=== PATIENT | female | born 1940 | race Caucasian/White ===

== ENCOUNTER 2017-04-05 10:19 | Day surgery (SDC) | payer OTHER ==
[2017-04-04 07:55] VITALS: BMI 27.8
[2017-04-05 10:51] VITALS: TEMP 97.8
[2017-04-05] MEDS ORDERED: MIDAZOLAM HCL 2 MG/2 ML SINGLE DOSE VIAL ONE (12:29)
[2017-04-05] MEDS ORDERED: PROPOFOL 20 ML ONE (12:29)
[2017-04-05] MEDS ORDERED: LIDOCAINE HCL 2% (20ML MULTI-DOSE VIAL) NR ONE (12:31)
[2017-04-05] MEDS ORDERED: ceFAZolin SODIUM 1 GM VIAL IVPB ONE (12:45)
[2017-04-05] MEDS ORDERED: LIDOCAINE HCL 2% (50ML VIAL) INF ONE (12:53)
[2017-04-05] MEDS ORDERED: IBUPROFEN 400 MG TABLET (FP) PO PRN (13:36)
[2017-04-05] MEDS ORDERED: ACETAMINOPHEN 325 MG TABLET (FP) PO PRN (13:36)
--- NOTE | 2017-04-05 18:58 | OP ---
DATE OF OPERATION: 04/05/2017 PREOPERATIVE DIAGNOSIS: Vulvar lesion. POSTOPERATIVE DIAGNOSIS: Vulvar lesion. SURGEON: Curtis Segundo MD ANESTHESIA: Fractional by Bong Rhodes MD and staff and 2% lidocaine 5 mL was injected by me. The lesion was removed and sent to Pathology, and were applied. Estimated blood loss was 5 . Patient tolerated the procedure and was sent to the recovery room in good condition. Chay [id number]
[2017-04-05 19:16] VITALS: BP 146/59; PULSE 57
--- NOTE | 2017-04-07 15:18 | PATH ---
Surgical Pathology Report Patient Name: SUKHWINDER PINA [facility]. Rec. #: [id number] /Age/Gender: 1940 (Age: 76) / F Account: [id number] Location: [facility] SURGICAL Taken: 04/05/2017 Received: 04/06/2017 Reported: 04/07/2017 Physicians: Curtis Segundo M.D. Specimen(s) Received RIGHT VULVAR LESION Clinical History Right vulvar lesion Final Diagnosis RIGHT VULVAR LESION, EXCISION: BARTHOLIN'S CYST. Electronically Signed Robert Subramanian M.D. Gross Description Received in formalin labeled "right vulvar lesion," is a 0.6 x 0.4 cm das, irregular, unoriented skin shave. No discrete epidermal lesion is identified. The base is inked blue and the specimen is bisected. Separately received within the same container is a 0.5 x 0.4 x 0.1 cm portion of das soft tissue. The specimen is entirely submitted in one cassette. 04/06/201704/06/2017
== END 2017-04-05 14:30 | disposition home or self-care (01) ==
LOC: JASU-SURG 10:19
PROVIDERS: ATTEND Obstetrics & Gynecology
PROC: 0UBL0ZZ Excision of Vestibular Gland, Open Approach (ICD-10-PCS; principal; 2017-04-05 12:00)
DX: N75.0 Cyst of Bartholin's gland (principal)
CPT/HCPCS: 88305-TC